=== PATIENT | female | born 1985 | race Caucasian/White ===

== ENCOUNTER 2022-03-12 13:18 | Emergency (ER) | payer OTHER, SELFPAY ==
--- NOTE | ~2022-03-12 | CT_ITS ---
EXAMINATION: CT ABDOMEN AND PELVIS WITHOUT CONTRAST CLINICAL INFORMATION: Flank pain. Question calculi/hydronephrosis. COMPARISON: CT scan of the abdomen and pelvis dated 07/10/2008 and 06/20/2008. TECHNIQUE: Multidetector volumetric imaging was performed from the superior aspect of the liver through the pubic symphysis. Sagittal and coronal reformatted images were obtained on the technologist workstation. This CT examination was performed using dose optimization techniques as appropriate, variously including the following: *Automated exposure control *Adjustment of mA and/or kV according to patient size (this includes techniques or standardized protocols for targeted exams where dose is matched to indication/reason for exam; i.e. extremities or head) *Use of iterative reconstruction technique DLP: 682.55 mGy-cm. FINDINGS: LUNG BASES: The visualized lung bases are unremarkable. LIVER, GALLBLADDER, AND BILIARY TREE: The liver is normal in size, shape, and attenuation. No focal hepatic lesion on noncontrast imaging. No biliary ductal dilatation is present. The gallbladder is unremarkable with no evidence of radiopaque gallstones, gallbladder wall thickening, or obvious pericholecystic inflammatory changes. PANCREAS: Unremarkable on noncontrast imaging. SPLEEN: Enlarged, measuring 14 cm longitudinally as compared to 12 cm (07/10/2008). Spleen otherwise unremarkable. There is a 1.2 cm accessory splenule seen along the anteromedial margin of the spleen. ADRENAL GLANDS: Unremarkable on noncontrast imaging. KIDNEYS AND URETERS: The kidneys are normal in size and shape. There are innumerable bilateral calculi at the corticomedullary junctions of both kidneys, consistent with medullary nephrocalcinosis. Compared to the prior exam, the appearance is very similar. Largest calcification is seen in the mid left kidney, measuring 1.3 x 0.9 cm with attenuation values of 1059 Hounsfield units, located at a distance of approximately 7.5 cm from the overlying posterior lateral skin surface in the mid axillary line. Previously seen right-sided hydronephrosis and proximal right ureteral calcification is no longer visualized. No hydronephrosis or hydroureter seen. No perinephric stranding. There is a new finding of multiple locules of air within the collecting system of the right kidney. No definite air locules are seen in the left kidney. BLADDER: The bladder is well distended. Small locules of air are seen in the anterior dependent portion of the bladder. No bladder wall thickening or pericystic fat stranding or edema is noted. PELVIC VISCERA: Unremarkable. GASTROINTESTINAL TRACT: The small and large bowel are unremarkable. The appendix is unremarkable. ABDOMINAL WALL: No significant hernia is appreciated. LYMPH NODES, VASCULAR: Unremarkable. OSSEOUS STRUCTURES: There is moderate degenerative disc space narrowing and vertebral endplate sclerosis and minimal spurring at the lumbosacral junction. Prominent superior endplate Schmorl's nodes are seen at L2 and in the lower thoracic spine. CT/CT abdomen pelvis wo con IMPRESSION: 1. Redemonstration of medullary nephrocalcinosis with extensive bilateral nonobstructing renal calculi seen. No hydronephrosis noted. 2. Several small locules of air are seen within the right renal collecting system and in the bladder. Please correlate clinically for recent catheterization or other procedure which may have introduced air into the collecting system. If no procedure was done, findings raise the suspicion of emphysematous pyelonephritis. Close clinical correlation is requested. 3. Splenomegaly.
[2022-03-12 13:51] VITALS: BP 174/99; PULSE 107; RESP 18; TEMP 36.4; O2SAT 98; BMI 31.8
[2022-03-12 14:24] LABS: Appearance Urine HAZY; Color Urine YELLOW; Glucose Urine UA NEG (NEG); Leukocyte Esterase Urine 3+ (NEG); Nitrite Urine NEG (NEG); PH 6.5 (5.0-8.0); Urine Blood 1+ (NEG); Urine Ketones NEG (NEG); Urine Protein 1+ MG/DL (NEG-TRACE)
[2022-03-12 14:35] LABS: Bacteria Urine 4+ /LPF; Squamous Epithelial Cell Urine TRACE /LPF
[2022-03-12 14:36] LABS: RBC Urine 0-2 /HPF (0)
--- NOTE | 2022-03-12 16:34 | ED_ITS ---
HPI - Abdominal Pain General Chief Complaint: Abdominal Pain Stated Complaint: Ear infection/Kidney stone Time Seen by Provider: 03/12/22 16:26 Source: patient Mode of arrival: ambulatory Limitations: no limitations History of Present Illness HPI narrative: Patient presents emergency department for evaluation of multiple complaints. She reports a extensive history of renal calculi, being followed by [facility]. Reports most recent surgical procedure September and November of 2021, stating that she had a cystoscopy and stenting. She presents today for a few days of severe right-sided abdominal pain with nausea and vomiting. Related Data Previous Rx's Medication Instructions Recorded nitrofurantoin 100 mg PO Q12H 5 days #10 caps 03/12/22 monohydrate/macrocrystals 100 mg capsule (Macrobid) oxycodone 5 mg tablet 5 mg PO Q8H PRN pain #5 tabs 03/12/22 Allergies Allergy/AdvReac Type Severity Reaction Status Date / Time Sulfa (Sulfonamide Allergy Severe Anaphylaxis Verified 03/12/22 16:35 Antibiotics) Review of Systems Review of Systems Constitutional: No weight loss, fever, chills, weakness or fatigue. Skin: No rash or itching. Cardiovascular: No chest pain, chest pressure or chest discomfort. No palpitations or pedal edema. Respiratory: No shortness of breath, cough or sputum production. Gastrointestinal: Positive vomiting. Positive abdominal pain. No blood in stool. Genitourinary: No burning micturition. No urinary frequency or incontinence. Musculoskeletal: No muscle pain, back pain, joint pain or stiffness. Psychiatric: No depression or anxiety. Yes all other systems are reviewed and are negative PMFSH Past Medical History Attestation statement: The following information was validated with the patient. Source: old records reviewed Medical History Medullary sponge kidney Nephrolithiasis Social History Social History Advance Directives: Yes Advance Directives Information Provided: Yes Advance Directives on File: No Physical Exam ED Vital Signs: Vital Signs - 24 hr 03/12/22 13:51 03/12/22 19:30 03/12/22 20:52 Temperature 97.6 F 98.5 F Pulse Rate 107 H 94 Respiratory Rate 18 18 15 Blood Pressure 174/99 H 145/101 H Pulse Oximetry 98 98 Oxygen Delivery Method Room Air BMI result Body Mass Index 31.8 Appearance: Alert.?Oriented to person, place and time. No acute distress.?Fiona l affect. Eyes: Pupils equal, round and reactive to light.? ENT: Pharynx normal.?? Neck: Normal inspection.? Neck supple.?? CVS: Heart sounds normal. Normal heart rate and rhythm.? Pulses normal.?? Respiratory: No respiratory distress.? Lung sounds clear to auscultation bilaterally?? Abdomen: Soft with right lateral abdominal tenderness. Mild Right CVA tenderness.. Normoactive bowel sounds. ? Skin: Skin warm and dry.? Normal skin color.? Extremities: No lower extremity edema.? No calf ttp? Neuro: Moves all extremities spontaneously. Sensation intact bilaterally. CN II- XII intact. No focal neuro deficits. Ambulates with normal steady gait. Course Course Course Narrative: Patient is a 36-year-old female with a past medical history of renal calculi, medullary sponge kidney, presenting to emergency department for evaluation of abdominal pain. She is overall well appearing, but does appear uncomfortable, hemodynamically stable. Significant history of renal calculi. Urinalysis obtained in triage reveals 3+ leuk esterase, 76-150 WBC, 1+ blood, will treat at this time for urinary tract infection with Rocephin IV. Will obtain CBC, CMP, CT of the abdomen and pelvis to evaluate for nephrolithiasis or hydronephrosis. 1L normal saline IV fluid, Zofran 4 mg IV for nausea, morphine 4 mg IV for pain. Reevaluation(s) Reevaluation #1: CBC is overall unremarkable. BMP unremarkable. Mildly elevated AST ALT 33/43, benign abdominal exam. Time: 18:40 Reevaluation #2: Patient continues to report 10/10 pain, no relief from morphine. She states that typically Dilaudid is Helpful for her pain. She continues to feel nauseous, no active vomiting. Will trial Dilaudid 0.5 mg IV, and Reglan IV, CT of the abdomen and pelvis is pending at this time. Time: 19:22 Reevaluation #3: CT of the abdomen and pelvis reveals medullary nephrocalcinosis with extensive bilateral nonobstructing renal calculi, no hydronephrosis. Discussed these findings with patient. Advised for plan of care for discharge home, pushing oral fluids, Tylenol/ibuprofen as needed for pain, oxycodone as needed for severe pain, Macrobid twice daily for urinary tract infection, and outpatient follow-up with urology. Discussed worrisome signs and symptoms to return back to the emergency department. All questions were answered and she was discharged home Time: 21:15 MDM - Abdominal Pain Medical Records Attestation: I reviewed the patient's medical records. Lab Data Attestation: I reviewed the patient's lab results. Result diagrams: 03/12/22 17:27 03/12/22 18:04 Labs: Lab Results 03/12/22 03/12/22 03/12/22 Range/Units 14:10 17:27 18:04 WBC 8.6 (4.8-10.8) X10*3/uL RBC 5.19 (4.20-5.50) X10*6/uL Hgb 15.1 (12.0-16.0) g/dl Hct 43.2 (37.0-47.0) % MCV 83.2 (80.0-98.0) fL MCH 29.1 (27.0-33.0) pg MCHC 35.0 (31.0-35.0) g/dl RDW 16.0 (11.0-16.0) % Plt Count 279 (160-400) X10*3/uL MPV 8.0 L (9.4-12.3) fL Immature Gran % (Auto) 0.5 H (0.0-0.4) % Neut % (Auto) 60.0 (45-73) % Lymph % (Auto) 26.2 (20-40) % [place] % (Auto) 11.1 H (2-11) % Eos % (Auto) 1.5 (0-4) % Baso % (Auto) 0.7 (0-2) % Lymph # (Auto) 2.3 (1.2-4.9) X10*3/uL [place] # (Auto) 1.0 (0.1-1.2) X10*3/uL Eos # (Auto) 0.1 (0.0-0.4) X10*3/uL Baso # (Auto) 0.1 (0.0-0.2) X10*3/uL Abs Immat Gran (auto) 0.04 H (0.00-0.03) X10*3/uL Absolute Neuts (auto) 5.2 (2.0-8.3) x10*3/uL Absolute Nucleated RBC 0.000 (0.0-0.012) X10*3/uL Nucleated RBC % (auto) 0.0 (0.0-0.2) /100WBC Sodium 138 (135-145) mmol/L Potassium 3.4 (3.3-5.1) mmol/L Chloride 104 (96-108) mmol/L Carbon Dioxide 23 (22-29) mmol/L Anion Gap 14 (12-20) BUN 13 (9-16) mg/dL Creatinine 0.82 (0.5-1.4) mg/dL Estim Creat Clear Calc 95.0 Estimated GFR > 60 Random Glucose 88 (60-115) mg/dL Calcium 9.3 (8.4-10.2) mg/dL Total Bilirubin 0.7 (0.0-1.0) mg/dL AST 33 H (5-31) U/L ALT 43 H (0-31) U/L Alkaline Phosphatase 79 (39-117) U/L Total Protein 7.6 (6.5-8.0) g/dL Albumin 4.1 (3.5-5.0) g/dL Beta HCG, Quant < 2 mIU/mL Urine Color YELLOW Urine Appearance HAZY Urine pH 6.5 (5.0-8.0) Ur Specific [place] 1.010 (1.005-1.025) Urine Protein 1+ H (NEG-TRACE) MG/DL Urine Glucose (UA) NEG (NEG) MG/DL Urine Ketones NEG (NEG) MG/DL Urine Blood 1+ H (NEG) Urine Nitrite NEG (NEG) Ur Leukocyte Esterase 3+ H (NEG) Urine RBC 0-2 (0) /HPF Urine WBC 76-150 H (0-4) /HPF Ur Squamous Epith Cells TRACE /LPF Urine Bacteria 4+ /LPF Imaging Data CT scan - abdomen: Radiologist's impression: CT/CT abdomen pelvis wo con IMPRESSION: ? 1. Redemonstration of medullary nephrocalcinosis with extensive bilateral nonobstructing renal calculi seen. No hydronephrosis noted. 2. Several small locules of air are seen within the right renal collecting system and in the bladder. Please correlate clinically for recent catheterization or other procedure which may have introduced air into the collecting system. If no procedure was done, findings raise the suspicion of emphysematous pyelonephritis. Close clinical correlation is requested. 3. Splenomegaly. Discharge Plan Discharge Clinical Impression: Bilateral nephrolithiasis, Urinary tract infection Patient Disposition: Home, Self-Care Instructions: Kidney Stones (ED), Urinary Tract Infection in Women (ED) Additional Instructions: You have been given a new prescription for an antibiotic for urinary tract infection, please complete this entire course. Oxycodone may be used as needed for severe pain, use when Tylenol/ibuprofen are not helpful. This is a narcotic, it may be addicting, do not drive or drink alcohol while taking this medication. Return to emergency department any new or worsening symptoms or concerns Follow-up with urology Prescriptions: New nitrofurantoin monohyd/m-cryst [Macrobid] 100 mg capsule 100 mg PO Q12H 5 Days Qty: 10 0RF Rx Instructions: must administer with a meal/food oxycodone 5 mg tablet 5 mg PO Q8H PRN (Reason: pain) Qty: 5 0RF Rx Instructions: Partial Fill upon patient request. Referrals: Reji Baker MD [Physician] - 1 week Interventions: ED Discharge Assessment Last Done: 03/12/22 21:43 Discharge Date/Time: 03/12/22 21:45
[2022-03-12 17:33] LABS: MANUAL DIFF FLAG NO
[2022-03-12 17:36] LABS: Basophils Absolute Auto 0.1 X10*3/uL (0.0-0.2); Basophils Percent Auto 0.7 % (0-2); Eosinophils Absolute Auto 0.1 X10*3/uL (0.0-0.4); Eosinophils Percent Auto 1.5 % (0-4); Hematocrit 43.2 % (37.0-47.0); Hemoglobin 15.1 g/dl (12.0-16.0); Imm Gran Abs Auto 0.04 X10*3/uL (0.00-0.03); Imm Gran Pct Auto 0.5 % (0.0-0.4); Lymphocytes Absolute Auto 2.3 X10*3/uL (1.2-4.9); Lymphocytes Percent Auto 26.2 % (20-40); Mean Corpuscular Hemoglobin 29.1 pg (27.0-33.0); Mean Corpuscular Volume 83.2 fL (80.0-98.0); Monocytes Percent Auto 11.1 % (2-11); Neutrophils Absolute Auto 5.2 x10*3/uL (2.0-8.3); Platelet Count 279 X10*3/uL (160-400); Red Blood Count 5.19 X10*6/uL (4.20-5.50); White Blood Count 8.6 X10*3/uL (4.8-10.8)
[2022-03-12] MEDS: ondansetron HCL 4 MG/2 ML VIAL IVPUSH (17:40)
[2022-03-12] MEDS: 0.9 % Sodium Chloride 1,000 ML 999 ML IV (17:40)
[2022-03-12] MEDS: Morphine Sulfate 4 MG/ML CARTRIDGE IVPUSH (17:40)
[2022-03-12] MEDS: cefTRIAXone sodium 1 GM in 0.9 % Sodium Chloride 50 ML IV (18:27)
[2022-03-12 18:34] LABS: Alanine Aminotransferase 43 U/L (0-31); Albumin Level 4.1 g/dL (3.5-5.0); Alkaline Phosphatase 79 U/L (39-117); Anion Gap 14 (12-20); Aspartate Amino Transferase 33 U/L (5-31); Bilirubin Total 0.7 mg/dL (0.0-1.0); Blood Urea Nitrogen 13 mg/dL (9-16); Calcium 9.3 mg/dL (8.4-10.2); Carbon Dioxide 23 mmol/L (22-29); Chloride 104 mmol/L (96-108); Estimated Glomerular Filt Rate > 60; Glucose Random 88 mg/dL (60-115); Potassium 3.4 mmol/L (3.3-5.1); Sodium 138 mmol/L (135-145); Total Protein 7.6 g/dL (6.5-8.0)
[2022-03-12 18:41] LABS: HCG Quantitative < 2 mIU/mL
[2022-03-12 19:30] VITALS: BP 145/101; PULSE 94; RESP 18; TEMP 36.9; O2SAT 98
[2022-03-12 20:52] VITALS: RESP 15
[2022-03-12] MEDS: HYDROmorphone HCl 1 MG/ML SYRINGE IVPUSH (20:52)
[2022-03-12] MEDS: Ketorolac Tromethamine 30 MG/ML VIAL IVPUSH (20:53)
[2022-03-12] MEDS: Metoclopramide HCl 10 MG/2 ML VIAL IVPUSH (20:53)
--- NOTE | 2022-03-12 21:11 | PC.NURSE ---
Patient was about to leave. This technical proposal writer was able to convince patient to stay and receive medication that was prescribed. Patient was agreeable but stated that she had a CAT scan and her results were not back yet
== END 2022-03-12 21:45 | disposition home or self-care (01) ==
PROVIDERS: Nurse Practitioner Family; Emergency Provider Internal Medicine; PCP Internal Medicine
DX: N20.0 Calculus of kidney (principal); N39.0 Urinary tract infection, site not specified; R10.9 Unspecified abdominal pain; R11.2 Nausea with vomiting, unspecified; Q61.5 Medullary cystic kidney; Z87.442 Personal history of urinary calculi
CPT/HCPCS: 36415; 74176; 80053; 81001; 84702; 85025; 96361; 96374; 96375; 99284; J0696; J1170; J1885; J2270; J2405; J2765

== ENCOUNTER 2024-04-17 12:52 | Outpatient (AMB) | payer OTHER, SELFPAY ==
--- NOTE | 2024-04-17 12:57 | MHC.OFFVIS ---
Vital Signs 04/17/24 13:10 Height 5 ft 3 in Weight 207 lb 3.752 oz BMI 36.7 BP 134/84 Blood Pressure Location Rt brachial Position Sitting Pulse 66 Pulse Source Pulse Oximeter Pulse Oximetry (%) 98 Oxygen Delivery Method Room Air Intake Visit Reasons: Abnormal lab, cannot accept msg Intake Note: Patient presents for abnormal lab. Allergies amlodipine Allergy (Severe, Verified 04/17/24 13:01) Swelling Sulfa (Sulfonamide Antibiotics) Allergy (Severe, Verified 04/17/24 13:01) Anaphylaxis Medication List - Last Reviewed 04/17/24 by EVELINE Thapa allopurinol 200 mg PO DAILY bupropion HCl XL 300 mg PO DAILY cholecalciferol (vitamin D3) 125 mcg PO DAILY dextroamphetamine-amphetamine 30 mg 1 tab PO BID folic acid 0.8 mg PO DAILY gabapentin 300 mg PO TID hydroxyzine pamoate 50 mg PO BID lamotrigine mg PO melatonin mg PO oxycodone 5 mg PO Q4H PRN oxycodone-acetaminophen 10-325 mg 1 tab PO Q4H PRN phenazopyridine 100 mg PO TID prednisone 20 mg PO BID HPI Comments Details: This is a 38-year-old female with history of medullary sponge kidney, IV drug use who presents for evaluation of positive BRIAN and rheumatoid factor. This was in the context of diffuse pain. Patient states that she gets pain in multiple joints including her hands, ankles, feet, knees. She takes Motrin 800 mg once or twice a week as needed. She denies any skin rashes. She states that she recently found out that she is positive for hepatitis-C and has an appointment soon with the specialist. She had 3 pregnancies, 2 children and 1 miscarriage. She had DVTs in the past that were in the context of PICC line. She would have PICC lines placed due to need for long courses of antibiotics for resistant UTIs due to her history of medullary sponge kidney. 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 Reproductive History Menstrual Total pregnancies: 3 Full term: 2 Ab spontaneous: 1 Review of Systems Const Denies fever(s) and Denies weight loss Musc Reports arthralgias, Denies joint swelling and Reports stiffness Physical Exam Vital Signs: Last Vital Signs Pulse 66 04/17/24 13:10 BP 134/84 04/17/24 13:10 Pulse Ox 98 04/17/24 13:10 Oxygen Delivery Method Room Air 04/17/24 13:10 BMI result Body Mass Index 36.7 Const General: cooperative, healthy appearing and comfortable Nutritional Appearance: obese morbidly obese Orientation/consciousness: patient oriented x3 Limitations: no limitations HEENT Head: Yes normocephalic and Yes atraumatic Mouth: moist mucous membranes Resp Effort & Inspection: normal respiratory effort and able to speak in complete sentences Auscultation: clear to auscultation bilaterally Cardio Rate: regular rate Rhythm: regular rhythm Skin Other: On erythematous discoloration at her knuckles Greenish discoloration along a vein on her left leg medially, purplish discoloration of her ankles and feet Normal nailfold capillaroscopy Neuro General: patient oriented x3 Extrem Other: No active synovitis No swollen joints noted Normal range of motion of hands, wrists, elbows and shoulders without pain No knee pain with flexion-extension bilaterally No ankle swelling or tenderness bilaterally Negative MTP squeeze test bilaterally Results Reviewed Results Reviewed: Labs reviewed RF 52 (<14) Positive BRIAN direct. No titer CRP normal Assessment & Plan Assessment & Plan (1) Rheumatoid factor positive: Code(s): R76.8 - Other specified abnormal immunological findings in serum Category: Medical Plan: This is a 38-year-old female who presents for evaluation of a positive rheumatoid factor and positive BRIAN direct (not by IFA, no titer provided) in the context of diffuse pain. Upon evaluation I do not see any clear-cut inflammatory arthritis. Positive rheumatoid factor and positive BRIAN can be seen in hepatitis-C infection. Patient recently found out that she had hepatitis-C. She will see a specialist soon for treatment. Advised patient to complete hepatitis-C treatment. Return to clinic as needed. Discussed symptoms and signs that are suggestive of an autoimmune rheumatic disease Follow-up as needed Plan I spent 30 minutes reviewing patient's chart, evaluating patient, counseling patient and documenting in the chart Coding Level of Care Code New Pt Level 3 (88381) Diagnoses Rheumatoid factor positive R76.8
[2024-04-17 13:10] VITALS: BP 134/84; PULSE 66; O2SAT 98; BMI 36.7
== END 2024-04-17 13:28 | disposition home or self-care (01) ==
PROVIDERS: PCP Internal Medicine; Visit Provider Student in an Organized Health Care Education/Training Program
DX: R76.8 Other specified abnormal immunological findings in serum (principal)
CPT/HCPCS: 99203

== ENCOUNTER → 2024-04-17 12:52 | Outpatient (BNVA) | payer OTHER, SELFPAY | PROVIDERS: PCP Internal Medicine; Visit Provider Student in an Organized Health Care Education/Training Program | DX: R76.8 Other specified abnormal immunological findings in serum (principal) | CPT/HCPCS: 99202 ==

== ENCOUNTER 2024-04-30 10:34 | Outpatient (AMB) | payer OTHER, SELFPAY ==
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
[2024-04-30 10:42] VITALS: BP 140/60; PULSE 101; BMI 34.8
== END 2024-04-30 11:31 | disposition home or self-care (01) ==
PROVIDERS: PCP Internal Medicine; Visit Provider Internal Medicine
DX: B19.20 Unspecified viral hepatitis C without hepatic coma (principal); F19.90 Other psychoactive substance use, unspecified, uncomplicated
CPT/HCPCS: 99204

== ENCOUNTER → 2024-04-30 10:34 | Outpatient (BNVA) | payer OTHER, SELFPAY | PROVIDERS: PCP Internal Medicine; Visit Provider Internal Medicine | DX: B19.20 Unspecified viral hepatitis C without hepatic coma (principal); F19.90 Other psychoactive substance use, unspecified, uncomplicated | CPT/HCPCS: 99202 ==

== ENCOUNTER 2024-05-04 10:46 | Outpatient (REF) | payer OTHER, SELFPAY ==
[2024-05-04 11:39] LABS: Hematocrit 38.3 % (37.0-47.0); Hemoglobin 12.4 g/dl (12.0-16.0); Mean Corpuscular HGB Conc 32.4 g/dl (31.0-35.0); Mean Corpuscular Hemoglobin 27.5 pg (27.0-33.0); Mean Corpuscular Volume 84.9 fL (80.0-98.0); Mean Platelet Volume 8.9 fL (9.4-12.3); Platelet Count 258 X10*3/uL (160-400); Red Blood Count 4.51 X10*6/uL (4.20-5.50); Red Cell Distribution Width 13.9 % (11.0-16.0)
[2024-05-04 11:41] LABS: INTERNATIONAL NORM RATIO 0.9 (0.9-1.1); Prothrombin Time 10.6 SEC (11.1-13.3)
[2024-05-04 12:34] LABS: Alanine Aminotransferase 42 U/L (0-31); Albumin Level 3.4 g/dL (3.5-5.0); Alkaline Phosphatase 93 U/L (39-117); Anion Gap 10 (12-20); Aspartate Amino Transferase 36 U/L (5-31); Bilirubin Total 0.2 mg/dL (0.0-1.0); Blood Urea Nitrogen 18 mg/dL (9-16); Calcium 10.3 mg/dL (8.4-10.2); Carbon Dioxide 24 mmol/L (22-29); Chloride 109 mmol/L (96-108); Estimated Glomerular Filt Rate 58; Glucose Random 81 mg/dL (60-115); Potassium 4.6 mmol/L (3.3-5.1); Sodium 138 mmol/L (135-145); Total Protein 7.1 g/dL (6.5-8.0)
[2024-05-05 04:04] LABS: Hepatitis A Antibody IgG Nonreactive (Nonreactive); ~Hepatitis A Antibody IgG 0.92 S/CO (0.00-0.99)
[2024-05-05 04:17] LABS: HBc Num1 0.17 S/CO (0.00-0.79); HBsAGNum1 0.25 S/CO (0.00-0.99); Hepatitis B Core Antibody Nonreactive (Nonreactive); Hepatitis B Surface Antigen Negative (Negative); ~HepC Num1 12.38 S/CO (0.00-0.79); ~Hepatitis C Antibody Reactive (Nonreactive)
[2024-05-05 05:33] LABS: HBS Num2 9.37 mIU/mL (0-7.99)
[2024-05-05 05:34] LABS: HBS Num3 9.62 mIU/mL (0-7.99); ~Hepatitis B Surface Antibody GRAYZONE (Nonreactive)
[2024-05-07 16:53] LABS: HCV RNA PCR Qn 3.63 Log IU/mL (NOT DETECTED); HCV RNA PCR Qn 4280 IU/mL (NOT DETECTED)
[2024-05-12 02:13] LABS: FIB-ALT 35 U/L (6-29); FIB-Alpha-2-Macroglobulin 223 mg/dL (106-279); FIB-Apolipoprotein A1 131 mg/dL (101-198); FIB-GGT 73 U/L (3-50); FIB-Haptoglobin 77 mg/dL (43-212); FIB-Total Bilirubin 0.2 mg/dL (0.2-1.2); Liver Fibrosis Score 0.19; Liver Fibrosis Stage F0; Nec Inflam Act Grade A0; Nec Inflam Act Score 0.16
[2024-05-15 15:23] LABS: HCV Genotype LiPA 1a
== END 2024-05-04 10:47 | disposition home or self-care (01) ==
LOC: HO.LAB 10:46
PROVIDERS: Visit Provider Internal Medicine
DX: B19.20 Unspecified viral hepatitis C without hepatic coma (principal)
CPT/HCPCS: 36415; 80053; 81596; 85027; 85610; 86704; 86706; 86708; 86803; 87340; 87522; 87902

== ENCOUNTER 2024-06-25 10:13 | Outpatient (AMB) | payer OTHER, SELFPAY ==
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
[2024-06-25 10:23] VITALS: BP 130/82; PULSE 68; BMI 35.6
== END 2024-06-25 11:39 | disposition home or self-care (01) ==
PROVIDERS: PCP Internal Medicine; Visit Provider Internal Medicine
DX: B19.20 Unspecified viral hepatitis C without hepatic coma (principal); F19.90 Other psychoactive substance use, unspecified, uncomplicated
CPT/HCPCS: 99213

== ENCOUNTER → 2024-06-25 10:13 | Outpatient (BNVA) | payer OTHER, SELFPAY | PROVIDERS: PCP Internal Medicine; Visit Provider Internal Medicine | DX: B19.20 Unspecified viral hepatitis C without hepatic coma (principal); F19.90 Other psychoactive substance use, unspecified, uncomplicated | CPT/HCPCS: 99212 ==

== ENCOUNTER 2024-09-28 08:35 | Outpatient (REF) | payer OTHER, SELFPAY ==
--- NOTE | ~2024-09-28 | US_ITS ---
EXAMINATION: US ABDOMEN HISTORY: B19.20 - Unspecified viral hepatitis C without hepatic coma TECHNIQUE: Real-time grayscale ultrasound imaging of the abdomen was performed and images were reviewed. COMPARISON: Correlation is made with a CT of the abdomen without contrast dated 03/12/2022. FINDINGS: Liver: The liver is normal mildly enlarged, but demonstrates homogeneous echotexture. No focal mass or intrahepatic biliary ductal dilatation is identified. There is normal hepatopedal flow in the portal vein. Gallbladder and biliary tree: The gallbladder is unremarkable, without evidence of calculi, wall thickening, or pericholecystic fluid. There is no sonographic Egan sign. The common bile duct is normal in caliber measuring 3 mm. Kidneys: The right kidney measures 14.5 cm in length. The left kidney measures 14.1 cm in length. There is diffuse increased echogenicity of the cortical medullary junctions, consistent with nephrocalcinosis. There is a 6 x 7 x 6 mm cyst in the interpolar region of the right kidney. There are 2 cysts at the lower pole of the left kidney measuring 17 x 12 x 13 mm and 10 x 5 x 12 mm. There is no hydronephrosis. Pancreas: The pancreatic head, neck, and body are unremarkable. The pancreatic tail is obscured by bowel gas. Spleen: The spleen is enlarged, measuring 16.4 cm in length. Abdominal aorta and inferior vena cava: The visualized portions of the abdominal aorta and inferior vena cava are normal in caliber. There is no free fluid in the abdomen. US/US abdomen complete IMPRESSION: 1. Mild hepatomegaly. The liver is otherwise unremarkable in appearance. 2. Splenomegaly. 3. Bilateral renal medullary nephrocalcinosis. Electronically signed by: Messi Flynn MD 09/28/2024 09:58 AM EST
[2024-09-28 10:46] LABS: Hemoglobin 13.5 g/dl (12.0-16.0); INTERNATIONAL NORM RATIO 0.9 (0.9-1.1); Mean Corpuscular HGB Conc 32.1 g/dl (31.0-35.0); Mean Corpuscular Hemoglobin 26.6 pg (27.0-33.0); Mean Corpuscular Volume 82.7 fL (80.0-98.0); Mean Platelet Volume 8.8 fL (9.4-12.3); Platelet Count 285 X10*3/uL (160-400); Prothrombin Time 10.7 SEC (10.9-12.4); Red Blood Count 5.08 X10*6/uL (4.20-5.50); Red Cell Distribution Width 13.2 % (11.0-16.0); White Blood Count 9.9 X10*3/uL (4.8-10.8)
[2024-09-28 12:24] LABS: Alanine Aminotransferase 34 U/L (0-31); Albumin Level 3.8 g/dL (3.5-5.0); Anion Gap 9 (12-20); Aspartate Amino Transferase 25 U/L (5-31); Bilirubin Total 0.2 mg/dL (0.0-1.0); Blood Urea Nitrogen 18 mg/dL (9-16); Calcium 10.5 mg/dL (8.4-10.2); Carbon Dioxide 26 mmol/L (22-29); Chloride 109 mmol/L (96-108); Estimated Glomerular Filt Rate > 60; Glucose Random 82 mg/dL (60-115); Potassium 4.7 mmol/L (3.3-5.1); Sodium 139 mmol/L (135-145); Total Protein 7.5 g/dL (6.5-8.0)
[2024-09-28 14:15] LABS: Alkaline Phosphatase 59 U/L (39-117)
[2024-09-29 07:57] LABS: HBS Num1 10.33 mIU/mL (0-7.99); HBc Num1 0.12 S/CO (0.00-0.79); HBsAGNum1 0.37 S/CO (0.00-0.99); Hepatitis B Core Antibody Nonreactive (Nonreactive); Hepatitis B Surface Antigen Negative (Negative)
[2024-09-29 10:35] LABS: HBS Num2 9.97 mIU/mL (0-7.99); HBS Num3 9.78 mIU/mL (0-7.99); ~Hepatitis B Surface Antibody GRAYZONE (Nonreactive)
[2024-10-01 14:19] LABS: HCV RNA PCR Qn <1.18 NOT DETECTED Log IU/mL (NOT DETECTED); HCV RNA PCR Qn <15 NOT DETECTED IU/mL (NOT DETECTED)
== END 2024-09-28 08:36 | disposition home or self-care (01) ==
LOC: HO.US 08:35
PROVIDERS: PCP Internal Medicine; Visit Provider Internal Medicine
DX: B19.20 Unspecified viral hepatitis C without hepatic coma (principal)
CPT/HCPCS: 36415; 76700; 80053; 85027; 85610; 86704; 86706; 87340; 87522

== ENCOUNTER → 2024-09-28 08:38 | Outpatient (BNV) | payer OTHER, SELFPAY | PROVIDERS: PCP Internal Medicine; Visit Provider Radiology Diagnostic Radiology | DX: R16.1 Splenomegaly, not elsewhere classified (principal); E83.59 Other disorders of calcium metabolism | CPT/HCPCS: 76700 ==

== ENCOUNTER → 2024-11-02 11:11 | Outpatient (BNVA) | payer OTHER, SELFPAY | PROVIDERS: PCP Internal Medicine; Visit Provider Internal Medicine ==

== ENCOUNTER 2025-02-19 19:50 | Emergency (ER) | payer OTHER, SELFPAY ==
[2025-02-19 20:11] VITALS: BP 132/102; PULSE 111; RESP 18; TEMP 36.4; O2SAT 99; BMI 29.7
--- NOTE | 2025-02-19 20:13 | ED.GENADULT ---
HPI - General Adult General Chief complaint: Psychiatric Symptoms Stated complaint: crisis/evaluation Time Seen by Provider: 02/19/25 20:26 Source: patient, RN notes reviewed and old records reviewed Mode of arrival: ambulatory Limitations: no limitations History of Present Illness ED Provider: Geneva KUMAR narrative: 39-year-old female presents for evaluation depression. Patient reports she is ?struggling mentally. ? She reports that she is taking her medications but inconsistently. She states that she has occasionally had some vague suicidal thoughts She does not wish to act on these thoughts and states that she has too much to live for including her children She is requesting to speak with somebody regarding her depression She reports that she saw her therapist this morning who was trying to get an outpatient evaluation schedule but was told an ER visit would expedite treatment Related Data Home Medications ?Medication ?Instructions ?Recorded ?Confirmed cholecalciferol (vitamin D3) 125 125 mcg PO DAILY 04/17/24 02/19/25 mcg (5,000 unit) tablet folic acid 800 mcg tablet 0.8 mg PO DAILY 04/17/24 02/19/25 bupropion HCl 300 mg 24 hr tablet, 300 mg PO DAILY 02/19/25 02/19/25 extended release dextroamphetamine-amphetamine 20 1 tab PO TID 02/19/25 02/19/25 mg tablet gabapentin 300 mg capsule 300 mg PO TID 02/19/25 02/19/25 lamotrigine 100 mg tablet 150 mg PO BEDTIME 02/19/25 02/19/25 melatonin 5 mg tablet 5 - 10 mg PO BEDTIME PRN insomnia 02/19/25 02/19/25 oxycodone-acetaminophen 10 mg-325 1 tab PO Q4H PRN moderate pain 02/19/25 02/19/25 mg tablet Allergies Allergy/AdvReac Type Severity Reaction Status Date / Time amlodipine Allergy Severe Swelling Verified 02/19/25 20:16 Sulfa (Sulfonamide Allergy Severe Anaphylaxis Verified 02/19/25 20:16 Antibiotics) Review of Systems Constitutional: Constitutional: Denies body ache(s), Denies chills, Denies fever(s) and Denies headache(s) Eyes: Eyes: Denies blurry vision ENT: Denies headache(s), Denies neck mass and Denies sore throat Cardiovascular: Cardiovascular: Denies chest pain and Denies dyspnea Respiratory: Respiratory: Denies cough and Denies dyspnea Gastrointestinal: Gastrointestinal: Denies abdominal pain, Denies nausea and Denies vomiting Musculoskeletal: Musculoskeletal: Denies back pain Integumentary/Breasts: Skin/Breast: Denies rash Neurologic: Denies headache(s) Psychiatric: Psychiatric: Denies anxiety, Reports depression, Denies homicidal ideation and Reports suicidal ideation [facility] Past Medical History Medical History Pulmonary embolism Nephrolithiasis Medullary sponge kidney Surgical History H/O removal of cyst Family History Family History Father Prostate cancer Mother High cholesterol Sister Hypothyroidism Social History Social History Household Members: Family Housing: House Alcohol intake: former Patient Tobacco Use Status: Current someday Tobacco user Advance Directives: No Advance Directives Information Provided: No Do you have a plan to hurt others: No Plan Current occupational status: employed 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 Physical Exam ED Vital Signs: Vital Signs - 24 hr 02/19/25 20:11 Temperature 97.6 F Pulse Rate 111 H Respiratory Rate 18 Blood Pressure 132/102 H Pulse Oximetry 99 Oxygen Delivery Method Room Air BMI result Body Mass Index 29.7 Const General: healthy appearing, comfortable, no acute distress, alert and awake Nutritional Appearance: well nourished Orientation/consciousness: patient oriented x3 HENMT Head: Yes normocephalic and Yes atraumatic Eyes Eyelids: Yes eyelids normal Conjunctivae: conjunctivae normal Sclerae: sclerae normal Corneas: corneas normal Pupils: Equal, round and reactive pupils present EOM: EOMs intact bilaterally Neck Neck: Yes full ROM Resp Effort & Inspection: normal respiratory effort, able to speak in complete sentences and not labored Skin General skin exam: elasticity normal Neuro General: patient oriented x3 Cranial nerves: Yes CN's II-XII intact bilaterally, Yes Equal, round and reactive pupils present and Yes Bilaterally intact EOM present Cognition (Neuro): normal cognition Extrem Other: Moving all extremities well without any obvious deformities Psych Appearance: grossly normal Mental Status: mental status grossly normal Speech and movement: Normal speech and movement present Affect: Anxious affect present Attitude: cooperative Thought process: Normal thought process present Thought content: no homicidality, no delusions, No delusions, no hallucinations and Depressive thoughts present Insight: Good insight present (Psych) Judgement: Good judgement present (Psych) Course Course Course Narrative: RME, this is a rapid medical exam performed by Marshall Bean please refer to primary provider for complete H&P- 39 year old female presents for evaluation of depression with vague SI. Plan for medical clearance and care team consult Medical Decision Making Medical Decision Making MDM Narrative: 39-year-old female presents for evaluation of depression. She does admit to having vague suicidal thoughts but has no plan and does not wish to act on them. She reports that she has had previous negative interactions with crisis teams regarding her son but not for herself personally. She is taking her medications sporadically and not consistently. The initial plan for the patient was 2 and have her medically cleared and to be evaluated by the care team. Upon learning of the change of the process the patient states that she wants to leave and does not wish to be evaluated by the care team any longer. I reassessed the patient and she states that she never stated that she was suicidal and that she has no suicidal thoughts. The patient reports that she has too much to live for. I asked the patient to call her therapist in front of me. I spoke with the patient's therapist, Yessenia with [facility] who feels the patient is just where the in not a threat to himself currently. Yessenia did evaluate the patient this morning. Yessenia also stated the patient could call her any time of night and she would answer to talk with the patient. The patient states that she will return to a different ER tomorrow when she has an advocate such as her father with her. She requested discharge and had no further questions. The patient stated several times that she is not suicidal. I did consider a section 12, however the patient reports that she was feeling anxious because she wanted to do things on her own terms. Ultimately after speaking with her therapist and the patient stating that she is not suicidal she was allowed to be discharged Differential Diagnosis Differential Diagnoses: The differential diagnosis associated with the presentation includes Depression Suicidal ideation Medication noncompliance PTSD Mood disorder Discharge Plan Discharge Clinical Impression: Depression Patient Disposition: Home, Self-Care Instructions: Depression (ED) Additional Instructions: You may return at any time if you are having thoughts of harming yourself or wish to speak with our care team. I recommend you are called 911 if you are having thoughts of harming yourself You were seen in our Emergency Department today for treatment of a behavioral health issue. It is important after your visit that you follow up with either your behavioral health provider or a primary care doctor within 7 days.? If you have trouble finding a therapist you can reach out to [place] [phone] [facility] [place] [facility] can be reached 7 days a week 24 hours a day.? Call [phone] to speak with someone.? Return for any worsening symptoms or concerns such as thoughts of self harm or harm to others. Please call 911 if you feel your mental health is worsening.? Prescriptions: No Action dextroamphetamine-amphetamine 20 mg tablet 1 tab PO TID oxycodone-acetaminophen 10-325 mg tablet 1 tab PO Q4H PRN (Reason: moderate pain) gabapentin 300 mg capsule 300 mg PO TID lamotrigine 100 mg tablet 150 mg PO BEDTIME bupropion HCl 300 mg tablet extended release 24 hr 300 mg PO DAILY melatonin 5 mg tablet 5 - 10 mg PO BEDTIME PRN (Reason: insomnia) cholecalciferol (vitamin D3) 125 mcg (5,000 unit) tablet 125 mcg PO DAILY folic acid 800 mcg tablet 0.8 mg PO DAILY Print Language: Ivorian
[2025-02-19 20:50] VITALS: BP 132/102; PULSE 111; RESP 18; TEMP 36.4; O2SAT 99
== END 2025-02-19 20:50 | disposition home or self-care (01) ==
PROVIDERS: Emergency Provider Emergency Medicine; PCP Nurse Practitioner Primary Care
DX: F32.A Depression, unspecified (principal); R45.851 Suicidal ideations; Z79.899 Other long term (current) drug therapy
CPT/HCPCS: 99283

== ENCOUNTER 2025-03-29 19:12 | Emergency (ER) | payer OTHER, SELFPAY ==
--- OUTSIDE RECORDS SUMMARY | 2024-09-06 06:30 | XMS_ITS | Continuity of Care Document ---
Author Organization [facility] Address [address] [place] [address] Phone Care Team Providers Care Irrigator Overhead Name Role Phone Librado LOPEZ, RVT, ANA, Messi Unavailable U navailable Allergies, Adverse Reactions, Alerts Substance Reaction Status Criticality amlodipine Active No Information trimethoprim Active No Information sulfamethoxazole Active No Informat ion Sulfa (Sulfonamide Antibiotics) Active No Information Procedures Procedure Date Office/Outpt E&M Established 15 Mins- CT & [place] Duplex Scan-extrem Veins; Comp- CT & [place] Duplex Scan-extrem Veins; Uni/ CT & [place] N Varithena, Single Truncal Vein - CT & [place] Endovenous Laser, 1st Vein- CT & [place] Endovenous laser vein addon- CT & [place] Jun Ultrason Guidan Needle Bx-rad- CT & [place] O ct Inj Sclerosing Solution; Sngl- CT & [place] O ct Duplex Scan-extrem Veins; Uni/ CT & [place] O ct Endovenous Laser, 1st Vein- CT & [place] Offic/outpt E&m Estab 5 Min Trial- Telem edicine CT & [place] 18-30 mmHg Thigh length gradient joann radha stocking Offic Cons New/estab Mod 40 Mi- CT & [place] Duplex Scan-extrem Veins; Comp- CT & [place] Advance Directives Directive Yes / No Effective Date File Name No Information Encounters Encounter Description Practice Location Reason(s) For Visit Diagnoses Date Provider Providers Copied on Encounter Office/Outpt E&M Established 15 Mins- [place] & [place] [facility] [place], [address] [place] [address] Dr [address], [id number], [place] tel:[phone] CVR - [facility] Localized edemaVenous insufficiency (chronic) (peripheral) 5 Librado LOPEZ RVT, RPVI Robert. [address] [place] [address], [facility] [place] [id number] , [place]. tel:[phone] Referring Provider: Bita Carter, [address] [place] [address], [address]. tel:[phone] [facility] MD [place], [address] [place] [address] Dr [address], [id number], [place] tel:[phone] [facility] Chronic venous hypertension (idiopathic) with other complications of bilateral lower extremity 5 Librado LOPEZ RVT, RPVI Robert. [address] [place] [address], [place], [place], [id number] , [place]. tel:[phone] Referring Provider: Bita Carter, [address] [place] [address], [place], [address]. tel:[phone] [facility] MD [place], [address] [place] [address] Dr Pleitez [address] [place], [id number], [place] tel:[phone] CVR - [facility] Encounter for follow-up examination after completed treatment for conditions other than malignant neoplasmPain in left leg 4 Librado LOPEZ RVT, RPVI Robert. [address] [place] [address], [facility] [place], [id number] , [place]. tel:[phone] Referring Provider: Bita Carter, [address] [place] [address] [address] , [place], [address]. tel:[phone] [facility] MD [place], [address] [place] [address] Dr Pleitez [address] [place], [id number], [place] tel:[phone] CVR - [place] [facility] Chronic venous hypertension (idiopathic) with inflammation of left lower extremity Oct-3 4 Librado LOPEZ RVT, ANA Swenson. [address] [place] [address], [facility], [place], [id number] , [place]. tel:[phone] Referring Provider: Bita Carter, [address] [place] [address], [address]. tel:[phone] [facility], [address] [place] [address] Dr Pleitez [address] [place], [id number], [place] tel:[phone] CVR - [place] [facility] Varicose veins of left lower extremity with other complications Oct-2 4 Libardo LOPEZ RVT, ANA Swenson. [address] [place] [address], [facility], [place], [id number] , [place]. tel:[phone] Referring Provider: Bita Carter, [address] [place] [address], [address]. tel:[phone] [facility], [address] [place] [address] Dr Pleitez [address] [place], [id number], [place] tel:[phone] CVR - [place] [facility] [place] Chronic venous hypertension (idiopathic) with other complications of right lower extremity Oct-2 4 Librado LOPEZ RVT, ANA Swenson. [address] [place] [address], [facility], [place], [id number] , [place]. [phone] Referring Provider: Bita Carter, [address] [place] [address] [place] [address], [address]. tel:[phone] [facility], [address] [place] [address] Dr Pleitez [address] [place], [id number], [place] tel:[phone] CVR - [place] [facility] [place] Chronic venous hypertension (idiopathic) with inflammation of right lower extremity Oct-2 4 Librado LOPEZ RVT, ANA Swenson. [address] [place] [address], [facility], [place], [id number] , . tel:[phone] Referring Provider: Bita Carter, [address] [facility] [address] , [place], [address]. tel:[phone] Offic/outpt E&m Estab 5 Min Trial- Telemedicine [place] & [place] [facility] [place], [address] [place] [address] Dr Pleitez [address] [place], [id number], tel:[phone] [facility]ose veins of right lower extremity with inflammationV aricose veins of left lower extremity with inflammationL ocalized edemaCramp and spasmRestless legs syndromeLymph edema, not elsewhere classifiedPru ritus, unspecifiedDi sorder of pigmentation, unspecifiedHe reditary lymphedema May- 4 Librado LOPEZ, LIZETTE, ANA Swenson. [address] [place] [address], [facility] [place], [place], [id number] , . tel:[phone] Referring Provider: Bita Carter, [address] [place] [address] [place] [address], [address]. tel:[phone] [facility], [address] [place] [address] Dr Pleitez [address] [place], [id number], [place] tel:[phone] [facility] Chronic venous hypertension (idiopathic) without complications of bilateral lower extremity 4 Librado LOPEZ RVT, ANA Swenson. [address] [place] [address], [place], [place], [id number] , [place]. tel:[phone] Referring Provider: Bita Carter, [address] [place] [address] [address] , [place], [address]. tel:[phone] Offic Cons New/estab Mod 40 Mi- CT & [place] [facility], [address] [place] [address] Dr Pleitez [address] [place], [id number], [place] tel:[phone] [facility] Chronic venous hypertension (idiopathic) without complications of bilateral lower extremityRest less legs syndromeLymph edema, not elsewhere classifiedPru ritus, unspecifiedDi sorder of pigmentation, unspecifiedPa in in left lower legHereditary lymphedemaCra mp and spasmLocalize d edema 4 Librado LOPEZ RVT, ANA Swenson. [address] [place] [address], [facility] [place], [id number] , [place]. tel:[phone] Referring Provider: Bita Carter, [address], [address]. tel:[phone] [facility], [address] [facility] [address], [place], [id number], tel:[phone] CVR [facility] Chronic venous hypertension (idiopathic) with other complications of bilateral lower extremity 4 Librado LOPEZ RVT, ANA Swenson. [facility] [place] [address], [facility] [place], [id number] , [place]. tel:[phone] Referring Provider: Bita Carter, [address], [address]. tel:[phone] Family History Family Member Type Diagnosis Age At Onset No Information Payers Payer name Insurance type Covered constitution party ID Ronel pena(s) [facility] [id number] Social History Type Description Quantity Date Captured Comments Alcohol Use Details Unknown Caffeine Use Details Unknown Tobacco Use Status No Information Smoking Status Former Smoker Non-Smoking Tobacco Use Details : No Details Available : No Details Available Sex Female Vital Signs Date / Time: Height Weight BMI Pulse Rate Blood Pressure Temperature Respiratory Rate Body Surface Area Head Circumference Head Circ. Percentile Wt./Mehrdad. Percentile BMI percentile Pulse Ox Inhaled Ox 94.350 kg (208.00 lbs) 36.9 0 kg/m eter (2) 140/86 mm[Hg] Chief Complaint And Reason For Visit No Information Reason For Referral Reason For Referral No Information Plan Of Treatment Date Type Action Status Goal Diet education completed Goal Diet education completed Goal Tobacco cessation counseling completed Goal Tobacco cessation counseling completed Goal Tobacco cessation counseling completed Goal Diet education completed Referral Ordered: Bita Carter timeframe: 3 Months (related to Essential (primary) hypertension) ordered Referral Ordered: Weight management: Referral to physician timeframe: 3 Months (related to Body mass index (BMI) 36.0-36.9, adult) ordered Referral Ordered: Weight management: Referral to physician timeframe: 3 Months (related to Body mass index (BMI) 36.0-36.9, adult) ordered History Of Present Illness Encounter Date Complaint History Of Prese nt Illness No Information Functional Status Date Functional Assessmen t No Information Instructions Date Instruction Additional Infor mation Giving Encouragement to exercise Related to Body mass index (BMI) 36.0-36.9, adult Compression stocking usage as conservative measure Related to Localized edema Patient education booklet given Related to Localized edema Diet education Related to Essen tial (primary) hypertension Exercise education Related to Es sential (primary) hypertension Lifestyle education Related to E ssential (primary) hypertension Diet education Related to Body mass index (BMI) 36.0-36.9, adult Lifestyle education Related to B wilder mass index (BMI) 36.0-36.9, adult Patient education booklet given Related to Varicose veins of right lower extremity with inflammation Pre and post instruc tions reviewed and provided Related to Varicose veins of right lower extremity with inflammation Patient education booklet given Related to Chronic venous hypertension (idiopathic) without complications of bilateral lower extremity Pre and post instruc tions reviewed and provided Related to Chronic venous hypertension (idiopathic) without complications of bilateral lower extremity Diet education Related to Body mass index (BMI) 36.0-36.9, adult Giving Encouragement to exercise Related to Body mass index (BMI) 36.0-36.9, adult Lifestyle education Related to B wilder mass index (BMI) 36.0-36.9, adult Assessments Type Assessment Date No Information Patient Care Teams Name Effective Dates (start - stop) Status Members No Information
[2025-03-29 19:26] VITALS: BP 142/91; PULSE 119; RESP 16; TEMP 36; O2SAT 98; BMI 33.6
--- NOTE | 2025-03-29 19:27 | ED.GENADULT ---
HPI - General Adult General Chief complaint: Medical Clearance Stated complaint: med clearance Time Seen by Provider: 03/29/25 19:31 Source: patient, RN notes reviewed and old records reviewed Mode of arrival: ambulatory Limitations: no limitations History of Present Illness ED Provider: Geneva KUMAR narrative: 39-year-old female presents for evaluation of medical clearance. She reports that she is at a [facility]. She last and drank ?a few nips. ? This was a few hours ago. She reports that she took a Breathalyzer and her alcohol level was 0.04 She reports that the staff at the penitentiary house is requiring a fentanyl screen before she can return The patient offers no complaints Related Data Home Medications ?Medication ?Instructions ?Recorded ?Confirmed cholecalciferol (vitamin D3) 125 125 mcg PO DAILY 04/17/24 02/19/25 mcg (5,000 unit) tablet folic acid 800 mcg tablet 0.8 mg PO DAILY 04/17/24 02/19/25 bupropion HCl 300 mg 24 hr tablet, 300 mg PO DAILY 02/19/25 02/19/25 extended release dextroamphetamine-amphetamine 20 1 tab PO TID 02/19/25 02/19/25 mg tablet gabapentin 300 mg capsule 300 mg PO TID 02/19/25 02/19/25 lamotrigine 100 mg tablet 150 mg PO BEDTIME 02/19/25 02/19/25 melatonin 5 mg tablet 5 - 10 mg PO BEDTIME PRN insomnia 02/19/25 02/19/25 oxycodone-acetaminophen 10 mg-325 1 tab PO Q4H PRN moderate pain 02/19/25 02/19/25 mg tablet Allergies Allergy/AdvReac Type Severity Reaction Status Date / Time amlodipine Allergy Severe Swelling Verified 03/29/25 19:28 Sulfa (Sulfonamide Allergy Severe Anaphylaxis Verified 03/29/25 19:28 Antibiotics) Review of Systems Constitutional: Constitutional: Denies chills, Denies fever(s) and Denies headache(s) Eyes: Eyes: Denies blurry vision ENT: Denies headache(s) and Denies sore throat Cardiovascular: Cardiovascular: Denies chest pain and Denies dyspnea on exertion Respiratory: Respiratory: Denies cough and Denies dyspnea on exertion Gastrointestinal: Gastrointestinal: Denies abdominal pain, Denies nausea and Denies vomiting Musculoskeletal: Musculoskeletal: Denies back pain Integumentary/Breasts: Skin/Breast: Denies rash Neurologic: Denies headache(s) PMFSH Past Medical History Medical History Pulmonary embolism Nephrolithiasis Medullary sponge kidney Surgical History H/O removal of cyst Family History Family History Father Prostate cancer Mother High cholesterol Sister Hypothyroidism Social History Social History Household Members: Family Housing: House Alcohol intake: former Patient Tobacco Use Status: Current someday Tobacco user Advance Directives: No Advance Directives Information Provided: No Do you have a plan to hurt others: No Plan Current occupational status: employed 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 Physical Exam ED Vital Signs: Vital Signs - 24 hr 03/29/25 19:26 03/29/25 20:11 Temperature 96.8 F 96.8 F Pulse Rate 119 H 119 H Respiratory Rate 16 16 Blood Pressure 142/91 H 142/91 H Pulse Oximetry 98 98 Oxygen Delivery Method Room Air Room Air BMI result Body Mass Index 33.6 Const General: healthy appearing, comfortable, no acute distress, alert and awake Nutritional Appearance: well nourished Orientation/consciousness: patient oriented x3 HENMT Head: Yes normocephalic and Yes atraumatic Eyes Eyelids: Yes eyelids normal Conjunctivae: conjunctivae normal Sclerae: sclerae normal Corneas: corneas normal Pupils: Equal, round and reactive pupils present EOM: EOMs intact bilaterally Neck Neck: Yes full ROM Resp Effort & Inspection: normal respiratory effort, able to speak in complete sentences and not labored GI Inspection: No distended Palpation (GI): Soft to palpation, not firm, nontender, no guarding and not rigid Skin General skin exam: elasticity normal Neuro General: patient oriented x3 Cranial nerves: Yes Equal, round and reactive pupils present and Yes Bilaterally intact EOM present Cognition (Neuro): normal cognition Extrem Other: Moving all extremities well without any obvious deformities Course Course Course Narrative: RME, this is a rapid medical exam performed by Marshall Bean please refer to primary provider for complete H&P- 39-year-old female presents for evaluation of ?I need med clearance. ? Patient reports she left her penitentiary house and drank a few nips of alcohol. The house without let her returned without ?a fentanyl screen. The patient reports that she had not use any other drugs. She reports that she had a Breathalyzer so they do not need an alcohol level and do not require blood work. The patient has no complaints, a drug screen was ordered Reevaluation(s) Reevaluation #1: The patient was positive for amphetamines, oxycodone and cocaine. She is provided with a copy of her tox screen Time: 20:25 Medical Decision Making Medical Decision Making MDM Narrative: 39-year-old female presents for evaluation of medical clearance. She is requesting a fentanyl screen before she will return to her penitentiary house. A drug screen was ordered. Differential Diagnosis Differential Diagnoses: The differential diagnosis associated with the presentation includes Substance abuse Alcohol abuse Medical clearance Polysubstance abuse Lab Data Labs: Lab Results 03/29/25 Range/Units 19:33 Urine Opiates Screen Not Detected (Not Detect) Ur Buprenorphine Scrn Not Detected (Not Detect) ng/mL Ur Oxycodone Screen Positive H (Not Detect) ng/mL Urine Methadone Screen Not Detected (Not Detect) ng/mL Urine Fentanyl Screen Not Detected (Not Detect) Ur Barbiturates Screen Not Detected (Not Detect) Ur Phencyclidine Scrn Not Detected (Not Detect) Ur Amphetamines Screen POSITIVE H (Not Detect) U Benzodiazepines Scrn Not Detected (Not Detect) Urine Cocaine Screen POSITIVE H (Not Detect) U Marijuana (THC) Screen Not Detected (Not Detect) Discharge Plan Discharge Clinical Impression: Encounter for drug screening Patient Disposition: Home, Self-Care Instructions: Abuse of Alcohol (ED) Additional Instructions: Your tox screen was negative for fentanyl Prescriptions: No Action dextroamphetamine-amphetamine 20 mg tablet 1 tab PO TID oxycodone-acetaminophen 10-325 mg tablet 1 tab PO Q4H PRN (Reason: moderate pain) gabapentin 300 mg capsule 300 mg PO TID lamotrigine 100 mg tablet 150 mg PO BEDTIME bupropion HCl 300 mg tablet extended release 24 hr 300 mg PO DAILY melatonin 5 mg tablet 5 - 10 mg PO BEDTIME PRN (Reason: insomnia) cholecalciferol (vitamin D3) 125 mcg (5,000 unit) tablet 125 mcg PO DAILY folic acid 800 mcg tablet 0.8 mg PO DAILY Interventions: ED Discharge Assessment Last Done: 03/29/25 20:11 Discharge Date/Time: 03/29/25 20:11 Print Language: Upper Sorbian
[2025-03-29 19:57] LABS: Cannabinoid Screen Urine Not Detected (Not Detect)
--- OUTSIDE RECORDS SUMMARY | 2025-03-29 20:10 | XMS_ITS | Encounter Summary ---
Author Organization [facility] Address [address] [place] [address] Phone Care Team Providers Care Hand Potter Name Role Phone Gutierrez Soto MD Primary Care Provider [phone] Reason for Visit * Reason Comments Med Refill Encounter Details Date Type Department Care Team (Late st Contact Info) Description 06/13/2023 Refill [facility] [address] [place] [address] Juan J Medina MD [address] [place] [address] [place]. [place] [address] Social History Tobacco Use Types Packs/Day Years Used Date Smoking Tobacco: Former Cigarettes Q uit: 02/23/2015 Alcohol Use Standard Drinks/Week Comments Yes 0 (1 standard drink = 0.6 oz pure alcohol) Alcoholic Drinks/day: Occasional social drink Comments Unknown Sex and Gender Information Value Date Recorded Sex Assigned at Not on file Legal Sex Female 4:31 PM EST Gender Identity Not on file Sexual Orientation Not on file documented as of this encounter Plan of Treatment Upcoming Encounters Date Type Department Care Team (Late st Contact Info) Description 06/07/2025 1:30 PM EDT Office Visit [facility] [address] [place] [address] Juan J Medina MD [address] [place] [address] [place] [address] documented as of this encounter Visit Diagnoses Not on filedocumented in this encounter Care Teams Hand Potter Relationship Specialty Start Date End Date Gutierrez Soto MD [facility] [address] [place] [address] [address] [place], [place] PCP - General Internal Medicine 02/16/24 documented as of this encounter
--- OUTSIDE RECORDS SUMMARY | 2025-03-29 20:10 | XMS_ITS ---
Author Name [facility] Organization Unknown Encounters Encounter Type Encounter Reason Primary Diagnosis Location Date Ambulatory [facility] ([facility]) 08/11/2024
--- OUTSIDE RECORDS SUMMARY | 2025-03-29 20:10 | XMS_ITS | Encounter Summary ---
Author Organization [facility] Address [address] [place] [address] Care Team Providers Care Photography Sales Associate Name Role Phone Devi Mera Primary Care Provider [phone] Encounter Details Date Type Department Care Team (Late st Contact Info) Description 02/23/2025 Lab Requisition [facility] [address] [facility] [place] [address] Ibeth Shepherd-Asia [address] [place] [phone] [facility] [place] drug therapy Social History Tobacco Use Types Packs/Day Years Used Date Smoking Tobacco: Never Assessed Comments Unknown Sex and Gender Information Value Date Recorded Sex Assigned at Not on file Legal Sex Female 12:51 AM EST Gender Identity Not on file Sexual Orientation Not on file documented as of this encounter Plan of Treatment Not on file documented as of this encounter Procedures Procedure Name Priority Date/Time Associated Diagnosis Comments LIPID PANEL WITH REFLEX TO DIRECT LDL Routine 02/23/2025 7:00 AM EDT [facility] [place] [facility] drug therapy HEMOGLOBIN A1C Routine 02/23/2025 7:00 AM EDT 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 GLUCOSE, RANDOM Routine 02/23/2025 7:00 AM EDT [facility] [place] drug therapy documented in this encounter Results * (ABNORMAL) Lipid panel with reflex to direct LDL (02/23/2025 7:00 AM EDT) Cholesterol 169 0 - 200 mg/dL LAB CHEMISTRY METHOD 02/23/2025 11:11 AM EDT [facility] Triglycerides 246(H) 0 - 150 mg/dL LAB CHEMISTRY METHOD 02/23/2025 11:11 AM EDT [facility] HDL 43 >=40 mg/dL LAB CHEMISTRY METHOD 02/23/2025 11:11 AM EDT [facility] LDL Calculated 77 0 - 100 mg/dL LAB CHEMISTRY METHOD 02/23/2025 11:11 AM EDT [facility] VLDL Cholesterol Marco A 49.2 mg/dL LAB CHEMISTRY METHOD 02/23/2025 11:11 AM EDT [facility] Non HDL Chol. (LDL+VLDL) 126 <145 mg/dL LAB CHEMISTRY METHOD 02/23/2025 11:11 AM EDT [facility] Chol/HDL Ratio 3.9 0.0 - 4.4 LAB CHEMISTRY METHOD 02/23/2025 11:11 AM EDT [facility] Blood Venous blood specimen / Unknown Venipuncture / Unknown 02/23/2025 7:00 AM EDT 02/23/2025 10:17 AM EDT Anastacia Shepherd LAB BLOOD ORDERABLES Final Resu lt Performing Organization Address [facility]/ZIP Co de Phone Number [facility] [address] [place] [address], [place] [phone] * (ABNORMAL) Glucose, random (02/23/2025 7:00 AM EDT) Glucose 57(L) 70 - 100 mg/dL LAB CHEMISTRY METHOD 02/23/2025 11:11 AM EDT [facility] Blood Venous blood specimen / Unknown Venipuncture / Unknown 02/23/2025 7:00 AM EDT 02/23/2025 10:17 AM EDT Anastacia Shepherd LAB BLOOD ORDERABLES Final Resu lt [facility] [address] [place] [address], [place] [phone] * Hemoglobin A1c (02/23/2025 7:00 AM EDT) Hemoglobin A1C 4.4 <6.5 % LAB CHEMISTRY METHOD 02/24/2025 11:29 AM EDT [facility] Mean Bld Glu Estim. 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
[2025-03-29 20:11] VITALS: BP 142/91; PULSE 119; RESP 16; TEMP 36; O2SAT 98
== END 2025-03-29 20:11 | disposition home or self-care (01) ==
LOC: HO.ED 20:08
PROVIDERS: Physician Assistant; Emergency Provider Internal Medicine
DX: Z51.81 Encounter for therapeutic drug level monitoring (principal); Z79.899 Other long term (current) drug therapy
CPT/HCPCS: 80307; 99282